=== PATIENT | male | born 1935 | race Caucasian/White ===

== ENCOUNTER 2017-08-25 08:47 | Inpatient (IN) | payer MEDICARE, OTHER ==
[~2017-08-25] VITALS: Ht 175.3 cm; Wt 77.4 kg
[2017-08-30] VITALS (12 sets, daily range): BP systolic 113–137; BP diastolic 59–88; PULSE 73–90; TEMP 97.9–98.7
[2017-08-30] MEDS ORDERED: TYLENOL 500MG500 MG PO (00:34)
[2017-08-30] MEDS ORDERED: XALATAN EYE DROPS OD (00:35)
[2017-08-30] MEDS ORDERED: CLINDAGEL 40 ML40 ML TOP (00:35)
[2017-08-30] MEDS ORDERED: ZANTAC 150MG T150 MG PO (00:35)
[2017-08-30] MEDS ORDERED: FLOMAX 0.40.4 MG/CAP PO (00:36)
[2017-08-30] MEDS ORDERED: AMBIEN 5MG TABLE5 MG PO (00:37)
[2017-08-30] MEDS ORDERED: COMPLETE SENIOR1 TA1 PO (05:44)
[2017-08-30] MEDS ORDERED: FIBER CHOICE1 CTB PO (05:45)
[2017-08-30] MEDS ORDERED: VITAMIN C500 MG PO (05:45)
[2017-08-30] MEDS ORDERED: COENZYME Q-1050 MG PO (06:05)
[2017-08-31 04:34] VITALS: BP 100/80; PULSE 92; TEMP 97.9
[2017-08-31 06:50] LABS: HEMATOCRIT 37.3 % (42.0-52.0); HEMOGLOBIN 12.6 g/dl (13.5-18.0)
[2017-08-31 08:28] VITALS: BP 123/94; PULSE 74; TEMP 98.2
[2017-08-31 11:55] VITALS: BP 113/61; PULSE 68; TEMP 98.3
[2017-08-31 16:06] VITALS: BP 109/55; PULSE 68; TEMP 97.8
[2017-08-31 20:27] VITALS: BP 104/73; PULSE 76; TEMP 98.6
[2017-09-01 01:08] VITALS: BP 114/66; PULSE 78; TEMP 98.4
[2017-09-01 04:51] VITALS: BP 118/68; PULSE 77; TEMP 98.4
[2017-09-01 08:17] VITALS: BP 134/67; PULSE 87; TEMP 97.9
[2017-09-01] MEDS ORDERED: NORCO 325 MG-7.1 TAB PO (09:05)
[2017-09-01] MEDS ORDERED: ROXICODONE 55 MG/TAB PO (09:06)
[2017-09-01] MEDS ORDERED: ASPIRIN 32325 MG/TA1 PO (09:07)
== END 2017-09-01 09:42 | disposition home or self-care (01) | DRG 470 ==
LOC: JCC 08-30 05:32
PROVIDERS: Orthopaedic Surgery
PROC: 0SRC0J9 Replacement of Right Knee Joint with Synthetic Substitute, Cemented, Open Approach (ICD-10-PCS; principal; 2017-08-30 08:30)
DX: M17.11 Unilateral primary osteoarthritis, right knee (principal)
CPT/HCPCS: A4315; A9284; C1713; C1776; J0690; J1100; J2250; J2405; J2704; J2765; J3010; J7120

== ENCOUNTER 2018-06-14 12:39 | Inpatient (IN) | payer MEDICARE, OTHER ==
[~2018-06-14] VITALS: Ht 175.3 cm; Wt 79.0 kg
[~2018-06-14 12:39] MED LIST: AMBIEN 5MG TABLE5 MG PO; ASPIRIN 32325 MG/TA1 PO; CLINDAGEL 40 ML40 ML TOP; COENZYME Q-1050 MG PO; COMPLETE SENIOR1 TA1 PO; FIBER CHOICE1 CTB PO; FLOMAX 0.40.4 MG/CAP PO; NORCO 325 MG-7.1 TAB PO; ROXICODONE 55 MG/TAB PO; TYLENOL 500MG500 MG PO; VITAMIN C500 MG PO; XALATAN EYE DROPS OD; ZANTAC 150MG T150 MG PO
[2018-08-21] VITALS (12 sets, daily range): BP systolic 118–156; BP diastolic 43–74; PULSE 65–80; TEMP 97.5–98.6
[2018-08-21] MEDS ORDERED: AMBIEN 10MG10 MG PO (02:35)
[2018-08-21] MEDS ORDERED: VALTREX 50500 MG/TAB PO (02:40)
[2018-08-22 00:45] VITALS: BP 146/90; PULSE 70; TEMP 98.6
[2018-08-22 06:02] VITALS: BP 148/66; PULSE 76; TEMP 98
[2018-08-22] MEDS ORDERED: NORCO 325 MG-7.1 TAB PO (06:45)
[2018-08-22] MEDS ORDERED: ROXICODONE 55 MG/TAB PO (06:45)
[2018-08-22] MEDS ORDERED: TYLENOL 500MG500 MG PO (06:46)
[2018-08-22] MEDS ORDERED: ASPI325T6 PO (06:47)
[2018-08-22 07:15] VITALS: BP 120/75; PULSE 70; TEMP 98.3
[2018-08-22 07:45] LABS: HEMATOCRIT 39.4 % (42.0-52.0); HEMOGLOBIN 13.5 g/dl (13.5-18.0)
[2018-08-22 11:15] VITALS: BP 132/54; PULSE 77; TEMP 98.2
== END 2018-08-22 11:41 | disposition home or self-care (01) | DRG 470 ==
LOC: JCC 08-21 05:08
PROVIDERS: Orthopaedic Surgery
PROC: 0SRD0J9 Replacement of Left Knee Joint with Synthetic Substitute, Cemented, Open Approach (ICD-10-PCS; principal; 2018-08-21 07:30)
DX: M17.12 Unilateral primary osteoarthritis, left knee (principal); Z85.46 Personal history of malignant neoplasm of prostate; E78.5 Hyperlipidemia, unspecified; K21.9 Gastro-esophageal reflux disease without esophagitis
CPT/HCPCS: A4314; A9284; C1713; C1776; J0690; J1100; J2250; J2405; J2704; J3010; J7120

== ENCOUNTER → 2018-08-14 | Outpatient (CLI) | payer MEDICARE, OTHER ==
[2018-08-14 17:57] LABS: HIV 1/2 Antibodies Non-Reactive; HIV-1p24 Antigen Non-Reactive
== END ==
LOC: COL.LAB 16:28
PROVIDERS: Orthopaedic Surgery
DX: Z01.812 Encounter for preprocedural laboratory examination (principal); M17.12 Unilateral primary osteoarthritis, left knee

== ENCOUNTER → 2019-05-17 | Outpatient (CLI) | payer MEDICARE, OTHER ==
[~2019-05-17] MED LIST changes: +AMBIEN 10MG10 MG PO; +ASPI325T6 PO; +VALTREX 50500 MG/TAB PO
== END ==
LOC: COL.RAD 09:55
DX: M89.312 Hypertrophy of bone, left shoulder (principal)

== ENCOUNTER 2021-09-27 13:15 | Emergency (ER) | payer MEDICARE, OTHER ==
[~2021-09-27] VITALS: Ht 175.3 cm; Wt 88.6 kg
[2021-09-27 13:24] VITALS: BP 176/114; TEMP 97.6
[2021-09-27] MEDS ORDERED: LYRICA 100MG C100 M1 PO (13:59)
[2021-09-27 14:08] VITALS: PULSE 94
== END 2021-09-27 14:08 | disposition home or self-care (01) ==
LOC: COL.ER 13:15
DX: G56.92 Unspecified mononeuropathy of left upper limb (principal); Z91.14 Patient's other noncompliance with medication regimen